=== PATIENT | female | born 1950 ===

== ENCOUNTER 2018-02-25 08:57 | Day surgery (SDC) | payer OTHER ==
[~2018-02-25] VITALS: Ht 160 cm; Wt 62.8 kg
[~2018-02-25 08:57] MED LIST: CALCIUM + VITA1 EAC1; ESOM20 PO; SERT100
[2018-02-25] MEDS ORDERED: ZESTORETIC 20-121 EA PO (09:18)
== END 2018-02-25 10:51 | disposition home or self-care (01) ==
LOC: ORSCSDS 08:57
PROVIDERS: Internal Medicine Gastroenterology
PROC: 0DBN8ZX Excision of Sigmoid Colon, Via Natural or Artificial Opening Endoscopic, Diagnostic (ICD-10-PCS; principal; 2018-02-25 09:45)
DX: Z12.11 Encounter for screening for malignant neoplasm of colon (principal); K63.5 Polyp of colon; K57.30 Diverticulosis of large intestine without perforation or abscess without bleeding; J45.909 Unspecified asthma, uncomplicated; E78.5 Hyperlipidemia, unspecified; R73.9 Hyperglycemia, unspecified; K21.9 Gastro-esophageal reflux disease without esophagitis; I10 Essential (primary) hypertension; Z79.899 Other long term (current) drug therapy
CPT/HCPCS: 88305; J7120

== ENCOUNTER 2020-03-27 01:34 | Emergency (ER) | payer MEDICARE ==
[~2020-03-27] VITALS: Ht 162.6 cm; Wt 67.1 kg
[~2020-03-27 01:34] MED LIST changes: +ZESTORETIC 20-121 EA PO
[2020-03-27] MEDS ORDERED: CALCIUM 600 +1 EA11 PO (01:53)
[2020-03-27] MEDS ORDERED: LOSARTAN-HCTZ1 EACH PO (01:53)
[2020-03-27 02:07] LABS: BASOPHILS ABSOLUTE AUTO 0.06 K/mm3 (0.00-0.23); BASOPHILS PERCENT AUTO 1 % (0-2); EOSINOPHILS ABSOLUTE AUTO 0.28 K/mm3 (0.00-0.68); EOSINOPHILS PERCENT AUTO 3 % (0-6); Hematocrit 37.2 % (33.0-51.0); Hemoglobin 12.1 g/dL (11.5-16.0); IMMATURE GRAN ABSOLUTE AUTO 0.02 K/mm3 (0.00-0.10); IMMATURE GRAN PERCENT AUTO 0 % (0-1); LYMPHOCYTES ABSOLUTE AUTO 3.63 K/mm3 (0.84-5.20); LYMPHOCYTES PERCENT AUTO 41 % (21-46); MONOCYTES ABSOLUTE AUTO 0.66 K/mm3 (0.16-1.47); MONOCYTES PERCENT AUTO 7 % (4-13); Mean Corpuscular HGB 29.5 pg (26.0-34.0); Mean Corpuscular HGB Conc 32.5 g/dL (31.5-36.5); Mean Corpuscular Volume 91 fL (80-100); Mean Platelet Volume 10.4 fL (9.1-12.4); NEUTROPHILS ABSOLUTE AUTO 4.25 K/mm3 (1.96-9.15); NEUTROPHILS PERCENT AUTO 48 % (41-73); Platelet Count 200 K/mm3 (150-400); RDW Coefficient Variation 12.2 % (11.7-14.2); RDW Standard Deviation 40.5 fL (35.1-46.3)
[2020-03-27 02:28] LABS: Alanine Aminotransfer (ALT/SGP 32 U/L (12-78); Albumin, Blood 3.8 g/dL (3.4-5.0); Albumin/Globulin Ratio 1.1 (0.8-1.8); Alk Phos 83 U/L (50-136); Anion Gap 5 mmol/L (6-16); Aspartate Aminotrans (AST/SGOT 23 U/L (12-37); Bilirubin, Total 0.3 mg/dL (0.1-1.0); Blood Urea Nitrogen 27 mg/dL (8-24); Bun/Creatinine Ratio 30.7 (12.0-20.0); CO2, Blood 28 mmol/L (21-32); Calcium, Blood 9.5 mg/dL (8.5-10.1); Chloride, Blood 108 mmol/L (98-108); Creatinine, Blood 0.88 mg/dL (0.40-1.00); Globulin, Blood 3.6 g/dL (2.2-4.0); Glomerular Filtration Rate >60 (60-); Glucose, Blood 111 mg/dL (70-99); Potassium, Blood 3.7 mmol/L (3.5-5.5); Sodium, Blood 141 mmol/L (136-145); Total Protein, Blood 7.4 g/dL (6.4-8.2); Troponin I <0.015 ng/mL (0.000-0.040)
== END 2020-03-27 06:39 | disposition home or self-care (01) ==
LOC: ER 01:34
PROVIDERS: Emergency Medicine
DX: K85.90 Acute pancreatitis without necrosis or infection, unspecified (principal); Z88.5 Allergy status to narcotic agent; Z79.899 Other long term (current) drug therapy
CPT/HCPCS: 36415; 71045; 76705; 80053; 83690; 84484; 85025; 93005; 93010; 96374; 99285-25; J2405

== ENCOUNTER → 2020-06-02 | Outpatient (CLI) | payer MEDICARE, OTHER ==
[~2020-06-02] MED LIST changes: +CALCIUM 600 +1 EA11 PO; +LOSARTAN-HCTZ1 EACH PO
== END | disposition home or self-care (01) ==
LOC: LAB SHORT 10:53 → LAB EV 10:53
DX: R05 Cough (principal); Z20.828 Contact with and (suspected) exposure to other viral communicable diseases
CPT/HCPCS: U0003

== ENCOUNTER 2023-10-21 06:20 | Day surgery (SDC) | payer OTHER ==
[2023-10-21] VITALS (10 sets, daily range): BP systolic 104–143; BP diastolic 53–84
[~2023-10-21] VITALS: Ht 158 cm; Wt 67.3 kg
[~2023-10-21 06:20] MED LIST changes: +HYDCHL25 PO; +KRILL OIL500 MG PO; +LOSA50 PO; +MULVITA PO; +Vitamin B Comple1 EA PO
[2023-10-21] MEDS ORDERED: Acetaminophen 500 MG Tab PO SCH ×2 (06:25→16:00)
[2023-10-21] MEDS ORDERED: OxyCODONE HCL 10 MG TABCR PO SCH (06:25)
[2023-10-21] MEDS ORDERED: Chlorhexidine Mouth Care 15 ML UDC MT SCH (06:25)
[2023-10-21] MEDS ORDERED: Ropivacaine 0.5% HCl/Pf 67.75 MG,EPINEPHrine HCL 0.25 MG,Ketorolac Tromethamine 15 MG,C... INFIL SCH (06:25)
[2023-10-21] MEDS ORDERED: Lactated Ringer's 1,000 ML IV SCH ×2 (06:25→09:55)
[2023-10-21] MEDS ORDERED: CeFAZolin Sodium 2,000 MG in NS 50 ML IV SCH ×2 (06:25→16:00)
[2023-10-21] MEDS ORDERED: NS IV SCH (06:50)
[2023-10-21] MEDS ORDERED: TRANEXAMIC ACID IV SCH (06:50)
[2023-10-21] MEDS ORDERED: propofoL 40 ML IV ONE (07:22)
[2023-10-21] MEDS ORDERED: FentaNYL Citrate 50 MCG/ML 2 ML Injection ONE (07:22)
[2023-10-21] MEDS ORDERED: Midazolam HCl 1MG / ML 2ML Vial ONE (07:28)
[2023-10-21] MEDS ORDERED: Midazolam HCl 1MG / ML 2ML Vial IV ONE (07:30)
[2023-10-21] MEDS ORDERED: ePHEDrine Sulfate 50 MG/ML 1ML Injection ONE (07:31)
[2023-10-21] MEDS ORDERED: Ondansetron HCl 2 MG / ML 2ML Vial ONE (08:34)
[2023-10-21] MEDS ORDERED: Dexamethasone Sod Phos 10 MG/ML 1ML VIAL ONE (08:34)
[2023-10-21] MEDS ORDERED: Prochlorperazine Edisylate 10 mg Vial IV PRN (09:45)
[2023-10-21] MEDS ORDERED: Promethazine HCl 25 MG Tab PO PRN (09:45)
[2023-10-21] MEDS ORDERED: DiphenhydrAMINE HCL 25 MG Cap PO PRN (09:50)
[2023-10-21] MEDS ORDERED: Bisacodyl 10 MG Supp PR PRN (09:50)
[2023-10-21] MEDS ORDERED: HYDROmorphone HCl/Pf 1MG SYR IV PRN (09:50)
[2023-10-21] MEDS ORDERED: FLU VACC QS2023-24(6MOS UP)/PF 60 MCG/0.5 ML SYRINGE IM ONE (09:50)
[2023-10-21] MEDS ORDERED: Ondansetron HCl 2 MG / ML 2ML Vial IV PRN (09:55)
[2023-10-21] MEDS ORDERED: OxyCODONE HCL 5 MG TAB PO PRN ×2 (09:55)
[2023-10-21] MEDS ORDERED: Metoclopramide HCl 5MG / ML 2ML Vial IV PRN (09:55)
[2023-10-21] MEDS ORDERED: Magnesium Hydroxide Conc 10 ML UDC PO PRN (09:55)
--- NOTE | 2023-10-21 10:33 | NUR ---
ARRIVAL TO SURGICAL UNIT VIA HOSPITAL BED. ALERT, PLEASANT. CAN WIGGLE TOES. PPP. AQUACEL TO L HIP, ANTERIOR. NO DRNG NOTED. DENIES N/V. WATER & SNACKS GIVEN.
[2023-10-21] MEDS ORDERED: Ketorolac Tromethamine 15mg Vial IV SCH (12:00)
[2023-10-21] MEDS ORDERED: ASPI81CH PO (14:30)
[2023-10-21] MEDS ORDERED: Percocet 5-3251 EACH PO (14:31)
--- NOTE | 2023-10-21 16:32 | NUR ---
DISCHARGE SUMMARY POD0 L BJORN, A/OX4, VSS, TOLERATING PO, PAIN WELL MANAGED, WORKED WELL WITH THERAPY AND CLEARED TO DC HOME. REMOVED IV ACCESS WHILE DISCUSSING DC INSTRUCTIONS. DISCUSSED HOME CARE, MEDICATIONS, AND FOLLOW UP APPOINTMENTS. NO QUESTIONS AT THIS TIME, PT ESCORTED OUT VIA WC TO PRIVATE AUTO TO GO HOME.
[2023-10-21] MEDS ORDERED: Docusate Sodium 100 MG Cap PO SCH (21:00)
[2023-10-22] MEDS ORDERED: HydroCHLOROthiazide 25 mg Tab PO SCH (09:00)
[2023-10-22] MEDS ORDERED: Calcium/Vit D 600 mg-400 Unit Tab PO SCH (09:00)
[2023-10-22] MEDS ORDERED: Losartan Potassium 50 MG Tab PO SCH (09:00)
[2023-10-22] MEDS ORDERED: Multivitamins 1 Tab PO SCH (09:00)
[2023-10-22] MEDS ORDERED: Vitamin B Complex 1 EA Softgel PO SCH (09:00)
[2023-10-22] MEDS ORDERED: Aspirin 81 MG Chew PO SCH (09:00)
== END 2023-10-21 16:17 | disposition home or self-care (01) ==
LOC: ORSCMMR 06:20 → ORD 07:30 → ORSCMMR 07:30 → SURS 10:18 → ORSCMMR 16:17
PROVIDERS: Orthopaedic Surgery
PROC: 0SRB0J9 Replacement of Left Hip Joint with Synthetic Substitute, Cemented, Open Approach (ICD-10-PCS; principal; 2023-10-21 07:30)
DX: M16.12 Unilateral primary osteoarthritis, left hip (principal); I10 Essential (primary) hypertension; Z79.899 Other long term (current) drug therapy
CPT/HCPCS: 72170; 97110; 97116; 97161; 97530; A9270; C1713; C1776; J0171; J0690; J0735; J1100; J1885; J2250; J2405; J2704; J2795; J3010; J7120

== ENCOUNTER 2024-06-22 07:45 | Day surgery (SDC) | payer OTHER ==
[2024-06-22] VITALS (10 sets, daily range): BP systolic 103–154; BP diastolic 55–83
[~2024-06-22] VITALS: Ht 160 cm; Wt 65.5 kg
[~2024-06-22 07:45] MED LIST changes: +ASPI81CH PO; +Acetaminophen 500 MG Tab PO SCH; +CeFAZolin Sodium 2,000 MG in NS 100 ML IV SCH; +Chlorhexidine Mouth Care 15 ML UDC MT SCH; +Lactated Ringer's 1,000 ML IV SCH; +OxyCODONE HCL 10 MG TABCR PO SCH; +Percocet 5-3251 EACH PO; +Ropivacaine 0.5% HCl/Pf 123.125 MG,EPINEPHrine HCL 0.25 MG,Ketorolac Tromethamine 15 MG... INFIL SCH; +Tranexamic Acid 100 ML IV SCH
[2024-06-22] MEDS ORDERED: FISH OIL 1,0001 EA10 PO (09:25)
[2024-06-22] MEDS ORDERED: Prochlorperazine Edisylate 10 mg Vial IV PRN (09:25)
[2024-06-22] MEDS ORDERED: OxyCODONE HCL 5 MG TAB PO PRN ×2 (09:25→09:30)
[2024-06-22] MEDS ORDERED: Ondansetron HCl 2 MG / ML 2ML Vial IV PRN (09:30)
[2024-06-22] MEDS ORDERED: Magnesium Hydroxide Conc 10 ML UDC PO PRN (09:30)
[2024-06-22] MEDS ORDERED: FLU VACC TS2024-25(6MOS UP)/PF 45 MCG/0.5 ML SYRINGE IM SCH (09:30)
[2024-06-22] MEDS ORDERED: Metoclopramide HCl 5MG / ML 2ML Vial IV PRN (09:30)
[2024-06-22] MEDS ORDERED: Lactated Ringer's 1,000 ML IV SCH (09:30)
[2024-06-22] MEDS ORDERED: Bisacodyl 10 MG Supp PR PRN (09:35)
[2024-06-22] MEDS ORDERED: DiphenhydrAMINE HCL 25 MG Cap PO PRN (09:35)
[2024-06-22] MEDS ORDERED: Promethazine HCl 25 MG Tab PO PRN (09:35)
[2024-06-22] MEDS ORDERED: HYDROmorphone HCl/Pf 1MG SYR IV PRN (09:35)
[2024-06-22] MEDS ORDERED: FentaNYL Citrate 50 MCG/ML 2 ML Injection ONE (09:48)
[2024-06-22] MEDS ORDERED: propofoL 40 ML IV ONE (09:51)
[2024-06-22] MEDS ORDERED: Midazolam HCl 1MG / ML 2ML Vial ONE (10:05)
[2024-06-22] MEDS ORDERED: Phenylephrine HCl 100 MCG/ML-NS 10MLSYR (1MG/10ML) ONE (10:40)
--- NOTE | 2024-06-22 12:20 | NUR ---
PT ARRIVED TO ROOM VIA HOSPITAL BED. A&O X4, VSS. R HIP INCISION COVERED WITH AQUACEL C/D/I. POLOR PACK IN PLACE. PT REPORTS SHE IS UNABLE TO FEEL TOES AT THIS TIME. WIGGLES FEET WHEN ASKED. PPP, TOES WARM AND PINK. BED IN LOWEST POSITION, CALL LIGHT WITHIN REACH.
[2024-06-22] MEDS ORDERED: Acetaminophen 500 MG Tab PO SCH (16:00)
--- NOTE | 2024-06-22 16:44 | NUR ---
PT VERBALIZED UNDERSTANDING OF DISCHARGE INSTRUCTIONS. INCISION SITE C/D/I COVERED WITH AQUACEL. SENT HOME WITH ADDITIONAL AQUACEL DRESSINGS. VSS. A&O X4. PPP. WORKED WITH PT, EATING/DRINKING/VOIDING WITHOUT ISSUE. DECLINES N/V. PAIN MANAGED. WHEELED OUT TO FRIENDS CAR VIA WHEELCHAIR.
[2024-06-22] MEDS ORDERED: CeFAZolin Sodium 2,000 MG in NS 100 ML IV SCH (18:00)
[2024-06-22] MEDS ORDERED: Ketorolac Tromethamine 15mg Vial IV SCH (18:00)
[2024-06-22] MEDS ORDERED: Docusate Sodium 100 MG Cap PO SCH (21:00)
[2024-06-23] MEDS ORDERED: Aspirin 81 MG Chew PO SCH (09:00)
== END 2024-06-22 16:40 | disposition home or self-care (01) ==
LOC: ORSCMMR 07:45 → ORD 09:15 → SURS 12:01 → ORSCMMR 16:40
PROVIDERS: Orthopaedic Surgery
PROC: 0SR90JZ Replacement of Right Hip Joint with Synthetic Substitute, Open Approach (ICD-10-PCS; principal; 2024-06-22 09:15)
DX: M87.9 Osteonecrosis, unspecified (principal); M16.11 Unilateral primary osteoarthritis, right hip; I10 Essential (primary) hypertension; E78.5 Hyperlipidemia, unspecified; K21.9 Gastro-esophageal reflux disease without esophagitis; F41.9 Anxiety disorder, unspecified; Z79.899 Other long term (current) drug therapy; Z79.82 Long term (current) use of aspirin
CPT/HCPCS: 72170; 97110; 97116; 97162; A6010; A9270; C1713; C1776; J0171; J0690; J0735; J1885; J2250; J2371; J2405; J2704; J2795; J3010; J7120